=== PATIENT | male | born 1990 | race Caucasian/White ===

== ENCOUNTER 2019-12-29 13:38 | Emergency (ER) | payer BC, SELFPAY ==
[2019-12-29 13:40] VITALS: BP 168/97; PULSE 82; RESP 18; TEMP 36.6; O2SAT 97
--- NOTE | 2019-12-29 14:06 | ED.NECK ---
HPI - Neck Pain/Injury General Chief Complaint: Neck Pain/Injury Stated Complaint: neck and back pain Source: patient Mode of arrival: ambulatory Limitations: no limitations History of Present Illness HPI Narrative: This is a 29-year-old male who presents with neck pain with neck stiffness and muscle spasm he woke up with approximately 1 day ago, there is no known injuries in no other symptoms currently no headaches no nausea vomiting no blurry vision no fever or chills. Patient at age around 13 had cervical spine surgery with no residual subsequent to the surgery. Currently there is no numbness or tingling radiating down into his shoulder are arms or fingers. complaint: neck pain Onset (ago): day(s) Place: home Radiation: right lateral and upper back Severity: severe Severity scale (1-10): 9 Quality: spasming Duration: constant Relieving factors: immobilization and medication OTC/prescribed Exacerbating factors: movement of neck Associated symptoms: none Treatments prior to arrival: none Related Data Allergies Allergy/AdvReac Type Severity Reaction Status Date / Time No Known Allergies Allergy Verified 12/29/19 14:00 Review of Systems Review of Systems: All systems reviewed & are unremarkable except as noted in HPI and below PMFSH Past Medical History Medical History Chronic neck pain Course Course Emergency Course: Patient reassessment has improved after IM injections of muscle relaxer and pain medication Toradol. Critical Care Time Critical Care Time Critical Care Time: No Discharge Plan Discharge Clinical Impression: Strain of neck muscle Qualifiers: Encounter type: initial encounter Qualified Code(s): S16.1XXA - Strain of muscle, fascia and tendon at neck level, initial encounter Patient Disposition: Home, Self-Care Condition: Stable Instructions: Antibiotic Form, Cervical Strain (ED) Additional Instructions: Take medicine as prescribed and follow-up primary care Physician within 1 week for re-evaluation and for blood pressure check. Prescriptions: New tramadol [Ultram] 50 mg tablet 50 mg PO Q6H PRN (Reason: pain) Qty: 20 RF: 0 cyclobenzaprine 10 mg tablet 10 mg PO TID Qty: 21 RF: 0 Follow-up/Referrals: Vlad Lomax DO [Primary Care Provider] - Time of Disposition: 14:35
[2019-12-29] MEDS: ORPHENADRINE CITRATE 100 MG TABLET.ER PO (14:29)
[2019-12-29] MEDS: KETOROLAC (*BKC) 60 MG/2 ML VIAL IM (14:29)
[2019-12-29 14:54] VITALS: BP 150/89; PULSE 86; RESP 15; O2SAT 100
== END 2019-12-29 14:56 | disposition home or self-care (01) ==
PROVIDERS: Emergency Provider Emergency Medicine; PCP Family Medicine
DX: S16.1XXA Strain of muscle, fascia and tendon at neck level, initial encounter (principal)
CPT/HCPCS: 96372; 99283; A9270; J1885

== ENCOUNTER 2021-09-20 16:29 | Outpatient (CLI) | payer BC, SELFPAY ==
[2021-09-20 16:52] LABS: Basophils Absolute Auto 0.05 K/mm3 (0.00-0.10); Basophils Percent Auto 0.7 % (0.0-1.0); Eosinophils Absolute Auto 0.25 K/mm3 (0.02-0.50); Eosinophils Percent Auto 3.5 % (1.0-6.0); Hematocrit 47.9 % (40.0-54.0); Hemoglobin 16.6 g/dL (14.0-18.0); Immature Granulocyte Absolute 0.07 K/mm3 (0.00-0.00); Lymphocytes Absolute Auto 1.89 K/mm3 (1.10-4.50); Lymphocytes Percent Auto 26.5 % (18.0-42.0); Mean Corpuscular HGB Conc 34.7 g/dL (32.0-36.0); Mean Corpuscular Hemoglobin 30.8 pg (27.0-31.0); Mean Corpuscular Volume 88.9 fL (78.0-102.0); Mean Platelet Volume 9.8 fl (8.7-11.0); Monocytes Absolute Auto 0.69 K/mm3 (0.10-0.90); Monocytes Percent Auto 9.7 % (2.0-11.0); Neutrophils Absolute Auto 4.2 K/mm3 (1.7-7.2); Neutrophils Percent Auto 58.6 % (50.0-70.0); Platelet Count Result 279 K/mm3 (150-420); Red Blood Count 5.39 M/mm3 (4.70-6.10); Red Cell Distribution Width 12.7 % (11.6-14.4); White Blood Count 7.1 K/mm3 (4.8-10.8)
[2021-09-20 17:21] LABS: Alanine Aminotransferase 75 U/L (16-63); Albumin Level 4.3 g/dL (3.4-5.0); Alkaline Phosphatase 60 U/L (46-116); Anion Gap 9 mmol/L (8-16); Aspartate Amino Transferase 34 U/L (15-37); Bilirubin,Total 0.3 mg/dL (0.00-1.00); Blood Urea Nitrogen 19 mg/dL (7-18); Calcium 9.2 mg/dL (8.5-10.1); Carbon Dioxide 28 mmol/L (21-32); Chloride 99 mmol/L (98-108); Estimated Glomerular Filt Rate > 60; Glucose 107 mg/dL (70-99); Osmolality Calculated 284 mOsm/kg (285-295); Potassium 3.8 mmol/L (3.5-5.1); Sodium 136 mmol/L (136-145); Thyroid Stimulating Hormone 1.99 uIU/mL (0.36-3.74); Total Protein 8.3 g/dL (6.4-8.2)
[2021-09-20 18:06] LABS: Erythrocyte Sedimentation Rate 6 mm/hr (0-15)
[2021-09-23 22:28] LABS: CRP, High Sensitivity 6.8 mg/L (***)
== END 2021-09-20 16:30 | disposition home or self-care (01) ==
LOC: CHSLAB 16:33
PROVIDERS: PCP Nurse Practitioner Family; Visit Provider Nurse Practitioner Family
DX: R52 Pain, unspecified (principal); G62.9 Polyneuropathy, unspecified; I10 Essential (primary) hypertension; E83.42 Hypomagnesemia
CPT/HCPCS: 36415; 80053; 83735; 84443; 85025; 85652; 86141

== ENCOUNTER 2021-10-24 15:29 | Outpatient (CLI) | payer BC, SELFPAY ==
--- NOTE | ~2021-10-24 | XR_ITS ---
XR knee RT 3V 10/24/2021 15:45 INDICATION: Right knee pain PROCEDURE: 3 views right knee COMPARISON: No prior studies for comparison. FINDINGS: Fracture, dislocation or subluxation is not identified. No significant joint effusion. The soft tissues appear within normal limits. No foreign bodies are identified. IMPRESSION: 1: NO ACUTE BONE OR JOINT ABNORMALITY IDENTIFIED. Reviewed, dictated and finalized at location B.
== END 2021-10-24 15:30 | disposition home or self-care (01) ==
LOC: CHSIMG 15:31
PROVIDERS: PCP Nurse Practitioner Family; Visit Provider Nurse Practitioner Family
DX: M25.561 Pain in right knee (principal)
CPT/HCPCS: 73562

== ENCOUNTER 2021-10-29 08:16 | Outpatient (CLI) | payer BC, SELFPAY ==
--- NOTE | ~2021-10-29 | MR_ITS ---
EXAMINATION: MR knee RT wo con DATE: 10/29/2021 09:46 INDICATION: Injury to the right knee 1 week ago, medial pain with popping grinding and giving out. TECHNIQUE: Magnetic resonance imaging (MRI) of the right knee was performed without intravenous contr ast. Sequences included axial PD-weighted FS FSE, coronal PD-weighted FSE and PD-weighted FS FSE, sag ittal PD-weighted FSE, and sagittal T2-weighted FS FSE. COMPARISON: X-ray right knee 10/24/2021 FINDINGS: Medial compartment: Cartilage and meniscus are intact. Lateral compartment: Cartilage and meniscus are intact. Patellofemoral compartment: Multifocal areas of partial-thickness and full-thickness cartilage signal abnormality along the media n ridge and lateral facet including areas of undercutting. Discontinuous medial retinaculum, with abn ormal signal in the adjacent soft tissue. Lateral retinaculum intact. Ligaments and tendons: Abnormal signal superficial and deep to the MCL. LCL, ACL, and PCL are intact. Patellar and quadricep s tendons are intact. Remaining flexor and extensor tendons are intact. Fluid: Large volume joint fluid. Osseous/other: Focal marrow edema along the lateral aspect of the distal femur. IMPRESSION: 1. Likely medial retinaculum tear, with lateral femoral contusion and partial/full thickness patellar cartilage defects. This pattern of findings suggests recent patellar dislocation. 2. Large volume right knee effusion. 3. Partial thickness MCL tear. Reviewed, dictated and finalized at location K. IMPRESSION: 1. Likely medial retinaculum tear, with lateral femoral contusion and partial/f ull thickness patellar cartilage defects. This pattern of findings suggests rec ent patellar dislocation. 2. Large volume right knee effusion. 3. Partial thickness MCL tear.
== END 2021-10-29 08:17 | disposition home or self-care (01) ==
LOC: CHSIMG 08:17
PROVIDERS: PCP Nurse Practitioner Family; Visit Provider Nurse Practitioner Family
DX: M25.561 Pain in right knee (principal)
CPT/HCPCS: 73721

== ENCOUNTER 2021-11-14 09:01 | Outpatient (RCR) | payer BC, SELFPAY ==
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
== END 2021-12-07 10:46 | disposition home or self-care (01) ==
LOC: CHSPT 09:01
PROVIDERS: Visit Provider Orthopaedic Surgery
DX: S83.006A Unspecified dislocation of unspecified patella, initial encounter (principal); S83.411D Sprain of medial collateral ligament of right knee, subsequent encounter
CPT/HCPCS: 97014; 97110; 97112; 97161; 97530; G0283

== ENCOUNTER 2022-08-30 05:50 | Emergency (ER) | payer BC, SELFPAY ==
--- NOTE | ~2022-08-30 | XR_ITS ---
Portable chest x-ray Comparison: 06/14/2016 Clinical History: Chest pain Findings: Lungs are clear, without focal consolidation or pleural effusion. Cardiomediastinal silho uette is stable. Bones and soft tissues are unremarkable. Impression: Normal chest. Reviewed, dictated and finalized at [facility]. Impression: Normal chest.
--- NOTE | 2022-08-30 05:51 | ECG_ITS ---
Measurements Intervals [place] Rate: 64 P: 45 WA: 189 QRS: 88 QRSD: 110 T: 40 QT: 410 QTc: 425 Interpretive Statements SINUS RHYTHM NORMAL ECG NO PREVIOUS ECG AVAILABLE FOR COMPARISON Electronically Signed On 08-30-2022 18:19:49 CDT by Taj Monique M.D.
[2022-08-30 05:52] VITALS: BP 166/108; PULSE 80; RESP 18; TEMP 36.4; O2SAT 95; O2SAT 96
--- NOTE | 2022-08-30 05:54 | ED.CHESTPAIN ---
HPI - Chest Pain General Chief Complaint: Chest Pain Stated Complaint: Chest Pain Source: patient Mode of arrival: ambulatory Limitations: no limitations History of Present Illness HPI narrative: 32-year-old male, ex-smoker with a history of hypertension, GERD, neuropathy, negative stress echo in 2017, negative exercise stress test last year, presents to the ER with an 8 hour history of -- right lower and left upper chest pain which is unprovoked and rated as 6/10. No radiation of the pain. No nausea / vomiting. No shortness of breath or lightheadedness. -- discomfort in both arms. MD complaint: chest pain Onset (ago): hour(s) ( Started 8 hours ago) Timing of current episode: constant Prior episodes: Yes Onset: during rest Pain location: left chest and right chest Pain radiation: none Severity: moderate Pain scale (0-10): 6 Quality: aching Relieving factors: nothing Exacerbating factors: nothing Treatment prior to arrival: none Risk Factors Coronary artery disease risk factors: hypertension Thoracic aortic dissection risk factors: none Related Data Allergies Allergy/AdvReac Type Severity Reaction Status Date / Time No Known Allergies Allergy Verified 08/24/22 07:58 Review of Systems Review of Systems: All systems reviewed & are unremarkable except as noted in HPI and below Constitutional: Constitutional: Reports as per HPI and Reports no additional constitutional complaints Eyes: Eyes: Reports as per HPI and Reports no additional eye complaints ENT: Reports system reviewed and no additional complaints, except as documented and Reports as per HPI Cardiovascular: Cardiovascular: Reports as per HPI, Reports no additional cardiovascular complaints and Reports chest pain Respiratory: Respiratory: Reports as per HPI and Reports no additional respiratory complaints Gastrointestinal: Gastrointestinal: Reports as per HPI and Reports no additional gastrointestinal complaints Genitourinary: Genitourinary: Reports no additional male genitourinary complaints and Reports as per HPI Musculoskeletal: Musculoskeletal: Reports no additional musculoskeletal complaints and Reports as per HPI Integumentary/Breasts: Skin/Breast: Reports system reviewed and no additional complaints, except as docu and Reports as per HPI Neurologic: Reports system reviewed and no additional complaints, except as documented and Reports as per HPI Psychiatric: Psychiatric: Reports no additional psychiatric complaints, Reports as per HPI and Reports anxiety Endocrine: Endocrine: Reports no additional endocrine complaints and Reports as per HPI Hematologic/Lymphatic: Hematologic/Lymphatic: Reports no additional hematologic/lymphatic complaints and Reports as per HPI Allergic/Immunologic: Allergic/Immunologic: Reports no additional allergic/immunologic complaints and Reports as per HPI [facility]LY [facility] Past Medical History Medical History Candidal intertrigo Chronic neck pain Cystic acne vulgaris Traumatic avulsion of right patellofemoral ligament Zoster without complications Surgical History Surgical History History of neck surgery Broken neck 2002 Social History Social History Smoking status: Former smoker Additional smoking assessment comments: Quit smoking 2018 Alcohol intake: current Alcohol use details: social Substance use: never Substance use type: does not use Lack of Transportation: No Lack of Food: Never True Current Housing: I Have Housing Concerned About Future Housing: No Difficulty Paying Gas/Electric Bills: No Difficulty Paying for Meds: No Currently Unemployed: No Education: High School Diploma/GED Difficulty w/ Childcare or Family Care: No Occupation/Education: occupation Gender identity (if verbalized by the patient): Male Exam
[2022-08-30 06:12] VITALS: PULSE 75; RESP 24
[2022-08-30 06:15] VITALS: PULSE 72; RESP 17
[2022-08-30 06:21] LABS: Basophils Absolute Auto 0.06 K/mm3 (0.00-0.10); Basophils Percent Auto 0.9 % (0.0-1.0); Eosinophils Absolute Auto 0.21 K/mm3 (0.02-0.50); Eosinophils Percent Auto 3.3 % (1.0-6.0); Hematocrit 42.1 % (40.0-54.0); Immature Granulocyte Percent A 1.6 % (0.0-0.0); Lymphocytes Absolute Auto 1.93 K/mm3 (1.10-4.50); Lymphocytes Percent Auto 30.1 % (18.0-42.0); Mean Corpuscular HGB Conc 35.6 g/dL (32.0-36.0); Mean Corpuscular Hemoglobin 31.9 pg (27.0-31.0); Mean Corpuscular Volume 89.6 fL (78.0-102.0); Mean Platelet Volume 9.7 fl (8.7-11.0); Monocytes Absolute Auto 0.61 K/mm3 (0.10-0.90); Monocytes Percent Auto 9.5 % (2.0-11.0); Neutrophils Absolute Auto 3.5 K/mm3 (1.7-7.2); Neutrophils Percent Auto 54.6 % (50.0-70.0); Platelet Count Result 221 K/mm3 (150-420); Red Cell Distribution Width 12.8 % (11.6-14.4); White Blood Count 6.4 K/mm3 (4.8-10.8)
[2022-08-30 06:30] VITALS: PULSE 64; RESP 11; O2SAT 96
[2022-08-30 06:31] LABS: Partial Thromboplastin Time 27.2 SEC (23.90-30.70); Prothrombin Time 10.9 Seconds (9.50-12.10)
[2022-08-30 06:38] LABS: Alanine Aminotransferase 69 U/L (16-63); Albumin Level 3.7 g/dL (3.4-5.0); Alkaline Phosphatase 61 U/L (46-116); Anion Gap 8 mmol/L (8-16); Aspartate Amino Transferase 27 U/L (15-37); Bilirubin,Total 0.3 mg/dL (0.00-1.00); Blood Urea Nitrogen 18 mg/dL (7-18); Calcium 9.2 mg/dL (8.5-10.1); Carbon Dioxide 30 mmol/L (21-32); Chloride 102 mmol/L (98-108); Estimated CRCL calculation 158 ml/min; Estimated Glomerular Filt Rate > 60; Glucose 138 mg/dL (70-99); NT Pro B Type Natriuretic Pept 25 pg/mL (0-125); Osmolality Calculated 293 mOsm/kg (285-295); Potassium 3.6 mmol/L (3.5-5.1); Sodium 140 mmol/L (136-145); Total Protein 7.6 g/dL (6.4-8.2); Troponin I 6.3 ng/L (0.00-60.4)
[2022-08-30 06:42] VITALS: BP 140/92; PULSE 65; RESP 15; O2SAT 97
[2022-08-30 06:45] VITALS: O2SAT 97
== END 2022-08-30 06:57 | disposition home or self-care (01) ==
PROVIDERS: Emergency Provider Internal Medicine Critical Care Medicine; PCP Family Medicine
DX: R07.89 Other chest pain (principal); I10 Essential (primary) hypertension; F41.9 Anxiety disorder, unspecified; Z87.891 Personal history of nicotine dependence
CPT/HCPCS: 71045; 80053; 83880; 84484; 85025; 85610; 85730; 93005; 99284